=== PATIENT | female | born 1975 | race Caucasian/White ===

== ENCOUNTER 2017-04-06 22:53 | Inpatient (IN) | payer OTHER ==
[~2017-04-06] VITALS: Ht 162.6 cm; Wt 68.0 kg
[~2017-04-06 22:53] MED LIST: AMBIEN 10 MG TA10 MG PO; AMOXICILLIN 50500 MG PO; AZITHROMYCIN 2250 MG PO; BOTOX100 UNIT IM; BUTALB-APAP-CA1 EACH PO; CLONAZEPAM 1 MG1 M1 PO; CLONAZEPAM2 MG PO; ERYTHROMYCIN E3.5 G1 OPHTHALMIC; HYDROCORTISONE PO; LAMICTAL100 MG PO; LIDODERM 5%1 PATC1 TRANSDERM; MEDROL DOSPAK21 TA1 PO; METFORMIN HCL500 MG PO; NORCO 5-325 TA1 EACH PO; ONDANSETRON HCL4 M2 PO; PHENERGAN 25 MG25 M1 PO; PROMETHAZI6.25 MG/2 PO; REGLAN 10 MG TA10 MG PO; TESSALON PERLE100 MG PO; TOPAMAX 100 MG100 MG PO; VENTOLIN HFA 1818 GM INH; VERAPAMIL ER120 MG PO; ZANAFLEX4 MG PO; ZANTAC 150MG T150 MG PO
[2017-04-06 22:56] VITALS: BP 102/73
[2017-04-06 23:57] LABS: ABSOLUTE NEUTROPHILS 10.1 thou/uL (1.4-8.2); BASOPHILS 1.1 % (0.0-2.0); EOSINOPHILS 1.2 % (0.0-3.0); HEMATOCRIT 40.2 % (37.0-47.0); HEMOGLOBIN 13.5 gm/dL (12.0-15.0); LYMPHOCYTES 17.3 % (24.0-44.0); MCH 29.6 pg (26.0-34.0); MCHC 33.5 g/dL (28.0-37.0); MCV 88.4 fL (80.0-100.0); MONOCYTES 6.1 % (1.0-8.0); PLATELET COUNT 348 thou/uL (150-400); POLYS 74.3 % (36.0-66.0); RBC 4.55 mil/uL (4.20-5.00); RDW 13.1 % (10.5-14.5); WBC 13.7 thou/uL (4.0-11.0)
[2017-04-06 23:58] LABS: MANUAL DIFF NO
[2017-04-07 00:04] LABS: CALCIUM 8.8 mg/dL (8.5-10.1); CREATININE 0.8 mg/dL (0.6-1.0); POTASSIUM 4.2 mmol/L (3.5-5.1)
[2017-04-07 00:18] LABS: URINE BILIRUBIN NEGATIVE (Negative); URINE BLOOD TRACE (Negative); URINE COLOR YELLOW; URINE GLUCOSE-RANDOM* NEGATIVE (Negative); URINE KETONES NEGATIVE (Negative); URINE LEUKOCYTES-REFLEX TRACE (Negative); URINE PROTEIN (DIPSTICK) NEGATIVE (Negative); URINE UROBILINOGEN 0.2 E.U./dl (0.2-1.0)
[2017-04-07 02:03] LABS: ALBUMIN 3.5 g/dL (3.4-5.0); ALKALINE PHOSPHATASE 49 U/L (46-116); DIRECT BILIRUBIN < 0.1 mg/dL (<0.1-0.3); SGOT 24 U/L (15-37); SGPT 26 U/L (30-65); TOTAL BILIRUBIN 0.2 mg/dL (<0.1-1.0); TOTAL PROTEIN 7.1 g/dL (6.4-8.2)
[2017-04-07 03:30] VITALS: BP 99/56
[2017-04-07 03:44] VITALS: BP 107/52
[2017-04-07 15:53] VITALS: BP 109/64
[2017-04-07 19:18] VITALS: BP 105/62
[2017-04-08 03:38] LABS: HEMATOCRIT 35.6 % (37.0-47.0); HEMOGLOBIN 12.1 gm/dL (12.0-15.0); MCV 88.3 fL (80.0-100.0); RBC 4.03 mil/uL (4.20-5.00); RDW 12.9 % (10.5-14.5); WBC 16.9 thou/uL (4.0-11.0)
[2017-04-08 03:46] LABS: CALCIUM 8.1 mg/dL (8.5-10.1); POTASSIUM 3.8 mmol/L (3.5-5.1)
[2017-04-08 04:25] VITALS: BP 94/45
[2017-04-08 09:08] VITALS: BP 121/77
[2017-04-08 16:00] VITALS: BP 95/53
[2017-04-08 20:00] VITALS: BP 134/80
[2017-04-09 04:00] VITALS: BP 110/72
[2017-04-09 07:39] VITALS: BP 114/70
[2017-04-09] MEDS ORDERED: HYDROCODONE-AP1 EAC6 PO (07:41)
[2017-04-09] MEDS ORDERED: HYDROCORTISONE5 MG PO (07:41)
[2017-04-09 07:51] VITALS: BP 114/70
== END 2017-04-09 10:54 | disposition home or self-care (01) | DRG 645 ==
LOC: ER 22:53 → 5S 04-07 02:33 → EROBS 04-07 02:33 → 5S 04-07 03:26
PROVIDERS: Emergency Medicine; Nurse Practitioner Family
DX: E27.1 Primary adrenocortical insufficiency (principal); R10.11 Right upper quadrant pain; G43.909 Migraine, unspecified, not intractable, without status migrainosus; D72.829 Elevated white blood cell count, unspecified; F32.9 Major depressive disorder, single episode, unspecified; Z88.6 Allergy status to analgesic agent; Z88.8 Allergy status to other drugs, medicaments and biological substances; Z90.49 Acquired absence of other specified parts of digestive tract; Z90.711 Acquired absence of uterus with remaining cervical stump; Z83.3 Family history of diabetes mellitus; Z83.6 Family history of other diseases of the respiratory system; Z82.49 Family history of ischemic heart disease and other diseases of the circulatory system; Z79.899 Other long term (current) drug therapy
CPT/HCPCS: 10086

== ENCOUNTER 2017-04-11 17:54 | Emergency (ER) | payer OTHER ==
[~2017-04-11] VITALS: Ht 162.6 cm; Wt 68.0 kg
[~2017-04-11 17:54] MED LIST changes: +HYDROCODONE-AP1 EAC6 PO; +HYDROCORTISONE5 MG PO
[2017-04-11] MEDS ORDERED: NORCO 5-325 TA1 EACH PO (20:50)
== END 2017-04-11 21:06 | disposition home or self-care (01) ==
LOC: ER 17:54
DX: G89.29 Other chronic pain (principal); M79.605 Pain in left leg; G43.909 Migraine, unspecified, not intractable, without status migrainosus; F32.9 Major depressive disorder, single episode, unspecified; F10.99 Alcohol use, unspecified with unspecified alcohol-induced disorder; Z90.49 Acquired absence of other specified parts of digestive tract; Z98.890 Other specified postprocedural states; Z90.711 Acquired absence of uterus with remaining cervical stump; Z88.5 Allergy status to narcotic agent; Z88.1 Allergy status to other antibiotic agents; Z88.8 Allergy status to other drugs, medicaments and biological substances

== ENCOUNTER 2017-05-09 06:15 | Emergency (ER) | payer BC, OTHER ==
[~2017-05-09] VITALS: Ht 162.6 cm; Wt 68.0 kg
[2017-05-09] MEDS ORDERED: CORTEF10 MG PO (06:23)
[2017-05-09 07:22] LABS: URINE BILIRUBIN NEGATIVE (Negative); URINE BLOOD TRACE (Negative); URINE COLOR YELLOW; URINE GLUCOSE-RANDOM* NEGATIVE (Negative); URINE KETONES NEGATIVE (Negative); URINE NITRITE NEGATIVE (Negative); URINE PROTEIN (DIPSTICK) NEGATIVE (Negative); URINE UROBILINOGEN 0.2 E.U./dl (0.2-1.0)
[2017-05-09 07:22] LABS: BASOPHILS 0.9 % (0.0-2.0); EOSINOPHILS 1.7 % (0.0-3.0); HEMOGLOBIN 13.8 gm/dL (12.0-15.0); LYMPHOCYTES 22.5 % (24.0-44.0); MCH 30.1 pg (26.0-34.0); MCHC 33.6 g/dL (28.0-37.0); MCV 89.5 fL (80.0-100.0); MONOCYTES 10.6 % (1.0-8.0); PLATELET COUNT 340 thou/uL (150-400); POLYS 64.3 % (36.0-66.0); RBC 4.59 mil/uL (4.20-5.00); RDW 13.3 % (10.5-14.5); WBC 7.8 thou/uL (4.0-11.0)
[2017-05-09 07:28] LABS: MANUAL DIFF NO
[2017-05-09 07:30] LABS: CALCIUM 8.4 mg/dL (8.5-10.1); CREATININE 0.9 mg/dL (0.6-1.0); POTASSIUM 4.1 mmol/L (3.5-5.1)
[2017-05-09 07:35] LABS: ALBUMIN 3.7 g/dL (3.4-5.0); TOTAL BILIRUBIN 0.3 mg/dL (<0.1-1.0); TOTAL PROTEIN 7.5 g/dL (6.4-8.2)
== END 2017-05-09 09:37 | disposition home or self-care (01) ==
LOC: ER 06:15
PROVIDERS: Emergency Medicine
DX: R53.83 Other fatigue (principal); E27.1 Primary adrenocortical insufficiency; G43.909 Migraine, unspecified, not intractable, without status migrainosus; F10.99 Alcohol use, unspecified with unspecified alcohol-induced disorder; Z90.49 Acquired absence of other specified parts of digestive tract; Z90.711 Acquired absence of uterus with remaining cervical stump; Z98.890 Other specified postprocedural states; Z88.6 Allergy status to analgesic agent; Z88.1 Allergy status to other antibiotic agents; Z88.8 Allergy status to other drugs, medicaments and biological substances